=== PATIENT | female | born 1970 | race Caucasian/White ===

== ENCOUNTER 2020-04-05 20:07 | Emergency (ER) | payer BC ==
[~2020-04-05] VITALS: Ht 162.6 cm; Wt 86.4 kg
[~2020-04-05 20:07] MED LIST: PREDNISONE10 MG PO; PREDNISONE20 MG PO; PRENATAL1 TA3 PO; SLOW FE45 MG PO; ZOVIRAX400 MG PO
[2020-04-05] MEDS ORDERED: EPIPEN 2-PAK1 MG/ML IM (23:21)
[2020-04-05] MEDS ORDERED: PREDNISONE20 MG PO (23:21)
[2020-04-05] MEDS ORDERED: PEPCID 20MG TAB20 MG PO (23:21)
[2020-04-06 00:25] VITALS: BP 139/80; PULSE 80
== END 2020-04-06 00:25 | disposition home or self-care (01) ==
LOC: COL.ER 20:07
DX: T78.2XXA Anaphylactic shock, unspecified, initial encounter (principal); Z79.52 Long term (current) use of systemic steroids; Z91.041 Radiographic dye allergy status; W57.XXXA Bitten or stung by nonvenomous insect and other nonvenomous arthropods, initial encounter
CPT/HCPCS: J0171; J2405; J2930